=== PATIENT | female | born 1970 | race Two or more races ===

== ENCOUNTER 2018-07-07 07:19 | Outpatient (CLI) | payer OTHER ==
[~2018-07-07 07:19] MED LIST: AMITRIPTYLINE H50 MG; BENADRYL50 MG; CLARITIN10 MG; ESKALITH300 MG; LYRICA100 MG; ORPHENADRINE C100 MG; PEPCID AC20 MG; PRILOSEC OTC20 MG; PROTONIX40 MG PO; SEPTRA DS TABLE1 TAB PO; TRIFLUOPERAZINE1 MG; TRIFLUOPERAZINE2 MG; ZOLOFT100 MG
== END 2018-07-07 08:42 | disposition home or self-care (01) ==
LOC: RX STUDY 07:19
DX: R11.2 Nausea with vomiting, unspecified (principal); K29.70 Gastritis, unspecified, without bleeding; K21.9 Gastro-esophageal reflux disease without esophagitis; R10.9 Unspecified abdominal pain

== ENCOUNTER 2018-07-31 07:08 | Outpatient (CLI) | payer OTHER | END 2018-07-31 07:14 | disposition home or self-care (01) | LOC: TOM 07:08 | DX: R93.5 Abnormal findings on diagnostic imaging of other abdominal regions, including retroperitoneum (principal); K29.70 Gastritis, unspecified, without bleeding; K21.9 Gastro-esophageal reflux disease without esophagitis; R11.2 Nausea with vomiting, unspecified; R10.84 Generalized abdominal pain | CPT/HCPCS: 74170; Q9965 ==

== ENCOUNTER 2019-07-08 10:00 | Outpatient (CLI) | payer OTHER | END 2019-07-08 10:02 | disposition home or self-care (01) | LOC: RX STUDY 10:00 | DX: R11.2 Nausea with vomiting, unspecified (principal); R19.5 Other fecal abnormalities ==

== ENCOUNTER → 2020-04-18 | Outpatient (CLI) | payer OTHER | END | disposition home or self-care (01) | LOC: OFIC 805 11:15 | PROVIDERS: ATTEND Otolaryngology | DX: R13.19 Other dysphagia (principal); M54.2 Cervicalgia; E04.8 Other specified nontoxic goiter ==

== ENCOUNTER 2020-05-01 07:00 | Day surgery (SDC) | payer OTHER ==
[~2020-05-01] VITALS: Ht 170.2 cm; Wt 78.0 kg
[2020-05-01] MEDS ORDERED: MONTELUKAST SOD10 MG (08:06)
[2020-05-01] MEDS ORDERED: CIMETIDINE800 MG (08:06)
[2020-05-01] MEDS ORDERED: SULINDAC200 MG (08:07)
[2020-05-01] MEDS ORDERED: LORAZEPAM0.5 MG (08:07)
[2020-05-01] MEDS ORDERED: METOCLOPRAMIDE10 MG (08:07)
[2020-05-01] MEDS ORDERED: PANTOPRAZOLE SO40 MG (08:07)
[2020-05-01] MEDS ORDERED: OXYBUTYNIN CHLO10 MG (08:07)
[2020-05-01] MEDS ORDERED: SYMBICORT 16010.2 GM (08:07)
[2020-05-01] MEDS ORDERED: SUCRALFATE1 GM (08:08)
[2020-05-01] MEDS ORDERED: SERTRALINE HCL100 MG PO (10:51)
[2020-05-01] MEDS ORDERED: AMITRIPTYLINE H75 MG PO (10:51)
== END 2020-05-02 08:00 | disposition home or self-care (01) ==
LOC: CIR.AMB 07:00 → SURH 07:00 → EDSTATUS 08:00 → SURH 08:00 → SURG 11:35 → O/R 11:35 → CIR.AMB 05-02 08:00 → SURG 05-02 12:04 → O/R 05-02 12:04
PROVIDERS: ATTEND Surgery
DX: E04.2 Nontoxic multinodular goiter (principal)

== ENCOUNTER 2020-07-20 10:17 | Outpatient (CLI) | payer OTHER ==
[~2020-07-20 10:17] MED LIST changes: +AMITRIPTYLINE H75 MG PO; +CIMETIDINE800 MG; +LORAZEPAM0.5 MG; +METOCLOPRAMIDE10 MG; +MONTELUKAST SOD10 MG; +OXYBUTYNIN CHLO10 MG; +PANTOPRAZOLE SO40 MG; +SERTRALINE HCL100 MG PO; +SUCRALFATE1 GM; +SULINDAC200 MG; +SYMBICORT 16010.2 GM
== END 2020-07-20 15:15 | disposition home or self-care (01) ==
LOC: OFIC 805 10:17
PROVIDERS: ATTEND Otolaryngology
DX: E04.8 Other specified nontoxic goiter (principal); M54.2 Cervicalgia; R13.19 Other dysphagia; K21.9 Gastro-esophageal reflux disease without esophagitis

== ENCOUNTER 2020-08-03 08:53 | Outpatient (CLI) | payer OTHER | END 2020-08-03 08:57 | disposition home or self-care (01) | LOC: RX STUDY 08:53 | PROVIDERS: ATTEND Otolaryngology | DX: R13.19 Other dysphagia (principal) ==

== ENCOUNTER 2024-07-21 05:29 | Day surgery (SDC) | payer OTHER ==
[2024-07-14 12:13] LABS: INR 0.98; PARTIAL THROMBOPLASTIN TIME 27.9 SECONDS (22.0-34.0); PROTHROMBIN TIME 10.7 SECONDS (9.0-11.5)
[2024-07-14 12:19] VITALS: BP 142/87
[~2024-07-21] VITALS: Ht 170.2 cm; Wt 87.1 kg
[~2024-07-21 05:29] MED LIST changes: +SYNTHROID125 MCG PO
[2024-07-21] MEDS ORDERED: LIDOCAINE HCL 1% 20 ML VIAL IJ ONE (09:00)
[2024-07-21] MEDS ORDERED: BUPIVACAINE HCL 30 ML VIAL IJ ONE (09:00)
[2024-07-21] MEDS ORDERED: CEFAZOLIN SODIUM 1,000 MG VIAL IV ONE (09:15)
[2024-07-21] MEDS ORDERED: BACITRACIN 28.35 GM OINT.TUBE TOP ONE (09:15)
== END 2024-07-21 11:40 | disposition home or self-care (01) ==
LOC: CIR.AMB 05:29
PROVIDERS: ATTEND Surgery Surgery of the Hand
DX: D21.12 Benign neoplasm of connective and other soft tissue of left upper limb, including shoulder (principal); E03.8 Other specified hypothyroidism; M79.7 Fibromyalgia; G47.00 Insomnia, unspecified; F32.A Depression, unspecified